=== PATIENT | female | born 1995 | race Caucasian/White ===

== ENCOUNTER 2020-07-05 22:13 | Emergency (ER) | payer BC, OTHER ==
[2020-07-05 22:23] VITALS: BP 108/68; PULSE 78; TEMP 98; BMI 21.1
[2020-07-05] MEDS ORDERED: FAMOTIDINE 20 MG TABLET PO ONE (22:55)
[2020-07-05] MEDS ORDERED: ONDANSETRON *ODT* 4 MG TABLET SL ONE (22:55)
[2020-07-05] MEDS ORDERED: diphenhydrAMINE HCL 25 MG CAPSULE (FP) PO ONE ×2 (22:55→22:59)
[2020-07-05] MEDS ORDERED: MAG HYDROX/AL HYDROX/SIMETH 30 ML UNIT-DOSE CUP PO ONE (22:55)
[2020-07-05] MEDS ORDERED: FAMOTIDINE 20 MG TABLET ONE (22:59)
[2020-07-05] MEDS ORDERED: MAG HYDROX/AL HYDROX/SIMETH 30 ML UNIT-DOSE CUP ONE (23:00)
[2020-07-05] MEDS ORDERED: ONDANSETRON *ODT* 4 MG TABLET ONE (23:00)
== END 2020-07-05 23:37 | disposition home or self-care (01) ==
LOC: JER 22:13
DX: R12 Heartburn (principal); T78.40XA Allergy, unspecified, initial encounter
CPT/HCPCS: 93005; 93010; 99283-25; Q0162